=== PATIENT | male | born 1980 | race Caucasian/White ===

== ENCOUNTER 2019-04-17 07:15 | Emergency (ER) | payer BC, OTHER ==
[2019-04-17 07:36] VITALS: BP 116/75
--- NOTE | 2019-04-17 07:51 | UC ---
UC General HPI - HPI Summary HPI Summary: box feeder notes - Right shoulder pain onset 2 yrs ago off/on, worsened 1 yr ago , now decreased ROM, WB started 2 weeks. Pain R shoulder x 2 years. Worse last few weeks. Since (today is Sat), unable to move R shoulder. Has worked hard with heavy lifting etc most of his life. Pain radiates to wrist and neck. Feels like something loose inside his shoulder. No known recent injury. took ibuprofen this am approx 5am 600mg otc. took acetaminophen a couple days ago, didn't help. Pt is R handed. - History of Current Complaint Chief Complaint: UCUpperExtremity Stated Complaint: RIGHT SHOULDER PAIN Time Seen by Provider: 04/17/19 07:50 Hx Obtained From: Patient Pain Intensity: 9 - Allergy/Home Medications Allergies/Adverse Reactions: Allergies Allergy/AdvReac Type Severity Reaction Status Date / Time Penicillins Allergy Severe Anaphylatic Verified 04/17/19 07:25 Shock Home Medications: Home Medications Acetaminophen [Acetaminophen Extra Strength] 1,000 mg PO Q5H PRN 04/17/19 [ History Confirmed 04/17/19] Ibuprofen TAB* [Motrin TAB* 600 MG] 600 mg PO ONCE 04/17/19 [History Confirmed 04/17/19] PMH/Surg Hx/FS Hx/Imm Hx Previously Healthy: Yes - Surgical History Surgical History: Yes Surgery Procedure, Year, and Place: appy - Family History Known Family History: Positive: Unknown - Social History Alcohol Use: Rare Substance Use Type: None Smoking Status (MU): Heavy Every Day Tobacco Smoker Type: Cigarettes Amount Used/How Often: 1 pack day Review of Systems All Other Systems Reviewed And Are Negative: Yes Constitutional: Positive: Negative Skin: Positive: Negative Eyes: Positive: Negative ENT: Positive: Negative Respiratory: Positive: Negative Cardiovascular: Positive: Negative Gastrointestinal: Positive: Negative Genitourinary: Positive: Negative Motor: Positive: Other - see hpi Neurovascular: Positive: Other - see hpi Musculoskeletal: Positive: Arthralgia - see hpi Neurological: Positive: Negative Psychological: Positive: Negative Is Patient Immunocompromised?: No Physical Exam Triage Information Reviewed: Yes Appearance: Well-Nourished Vital Signs: Initial Vital Signs Temp 98.1 F 04/17/19 07:30 Pulse 72 04/17/19 07:30 Resp 15 04/17/19 07:30 BP 116/75 01/25/20 07:30 Pulse Ox 97 04/17/19 07:30 Vital Signs Reviewed: Yes Eye Exam: Normal ENT Exam: Normal Neck exam: Other - c/o tenderness extending up from shoulder R, some spasm Respiratory Exam: Normal Cardiovascular Exam: Normal Abdominal Exam: Normal Abdomen Description: Positive: Nontender Musculoskeletal Exam: Other - R shoulder with some atrophy noted. Tender ant and post shoulder, no crepitus. Able to straighten elbow. Distal pulse good. Hand strength good. unable to abduct past 20deg d/t pain. Also feels like it' s stuck. Ax n sens LT present bilat. Neurological Exam: Normal - nonfocal Psychological Exam: Normal Skin Exam: Normal - no rash Course/Dx - Course Course Of Treatment: Reviewed coa / tx plan Questions as posed answered to the best of my ability. Work note offered, initially declines, citing he has to work. But will take work note until Friday. Referral to orthopedics will be helpful. Xray - nad (see [facility]). Reviewed with pt. - Diagnoses Provider Diagnosis: Frozen shoulder, Shoulder pain Discharge ED - Sign-Out/Discharge Documenting (check all that apply): Patient Departure All imaging exams completed and their final reports reviewed: Yes - Discharge Plan Condition: Stable Disposition: HOME Patient Education Materials: Arthralgia (ED), Shoulder Pain (ED) Forms: *Work Release Referrals: Navneet Berg MD [Medical Doctor] - Ryan Bates MD [Medical Doctor] - No Primary Care Phys,NOPCP [Primary Care Provider] - - Billing Disposition and Condition Condition: STABLE Disposition: Home
== END 2019-04-17 09:22 | disposition home or self-care (01) ==
LOC: UCCORT 07:15
DX: M25.511 Pain in right shoulder (principal); M75.01 Adhesive capsulitis of right shoulder; Z88.0 Allergy status to penicillin
CPT/HCPCS: 99203; G0463

== ENCOUNTER 2023-09-08 17:14 | Observation (INO) ==
[2023-09-08] MEDS ORDERED: HYDROmorphone 1 MG/1 ML SYRINGE IV SLOW PU ONE (17:37)
[2023-09-08] MEDS: HYDROmorphone 1 MG/1 ML SYRINGE IV SLOW PU ONE (17:42)
[2023-09-08] MEDS: NS 0.9% 1000 ml BAG 1,000 ML IV ONE (17:42)
[2023-09-08] MEDS: Prochlorperazine 5 mg/ml 2 ml VIAL (10 mg) IV ONE (19:25)
[2023-09-08] MEDS ORDERED: Ondansetron 4 mg VIAL 2 MG/ML 2 ml VIAL IV PRN (19:45)
[2023-09-08] MEDS ORDERED: Metoclopramide 5 MG/ML VIAL (10 mg) IV SLOW PU PRN (20:28)
[2023-09-08] MEDS ORDERED: HYDROmorphone 1 MG/1 ML SYRINGE IV SLOW PU PRN ×2 (20:28→20:40)
[2023-09-08] MEDS: NS 0.9% 1000 ml BAG 1,000 ML IV SCH (21:26)
[2023-09-08] MEDS: Morphine 2 MG/ML SYRINGE IV PRN (21:38)
[2023-09-09] MEDS: HYDROmorphone 1 MG/1 ML SYRINGE IV SLOW PU PRN (05:52)
[2023-09-09 07:08] LABS: ABS Basophils 0.1 10^3/uL (0.0-0.1); ABS Eosinophils 0.1 10^3/uL (0.0-0.5); ABS Lymphocytes 3.3 10^3/uL (1.0-4.8); ABS Monocytes 1.1 10^3/uL (0.0-1.1); ABS Neutrophils 10.1 10^3/uL (1.5-7.6); ABS Nucleated RBC 0.01 10^3/ul; Hemoglobin 13.7 g/dL (13.2-16.3); Lymphocyte % 22.6 %; Mean Corpuscular Hemoglobin 31.5 pg (27-33); Mean Corpuscular Hgb Conc 34.2 g/dL (31-36); Mean Corpuscular Volume 92.2 fL (80-97); Mean Platelet Volume 8.6 fL (7.5-11.2); Platelet Count 174 10^3/uL (150-450); Red Blood Count 4.34 10^6/uL (4.06-5.63); Red Cell Distribution Width 13.6 % (12-17); White Blood Count 14.8 10^3/uL (3.6-10.2)
[2023-09-09 07:33] LABS: Creatinine, Serum 1.28 mg/dL (0.67-1.17); Potassium 4.2 mmol/L (3.5-5.0); eGFR CKD-EPI 71.7 (>60)
[2023-09-09 10:34] VITALS: BP 127/79
[2023-09-09] MEDS ORDERED: fentaNYL 100 mcg/2 ml 50 MCG/ML VIAL IV PRN (14:13)
[2023-09-09] MEDS ORDERED: Naloxone 0.4 mg VIAL 0.4 mg/ml 1 ml VIAL IV PRN (14:13)
== END 2023-09-09 16:50 | disposition home or self-care (01) ==
LOC: EDHOLD 17:14 → ED 17:14 → MED 09-09 01:32
PROVIDERS: ADMIT Student in an Organized Health Care Education/Training Program; ATTEND Student in an Organized Health Care Education/Training Program